=== PATIENT | female | born 1980 | race Caucasian/White ===

== ENCOUNTER 2016-11-19 09:10 | Day surgery (SDC) | payer BC ==
--- NOTE | 2016-11-18 20:55 | EKG REPORT ---
SEVERITY:- NORMAL ECG - SINUS RHYTHM : Confirmed by: Jazmyn Loja MD 18-Nov-2016 20:54:10
[~2016-11-19 09:10] MED LIST: CEFAZOLIN 1 GM/D5W RTU 1 GM/50 ML RTUPB IV PRN; DEXAMETHASONE SOD PHOSPHATE INJ 4 MG/1 ML VIAL ONE; GLYCOPYRROLATE INJ 0.4 MG/2 ML VIAL ONE; KETOROLAC TROMETHAMINE 60 MG/2 ML SDV ONE; LACTATED RINGERS 1000 ML IV PRN; LIDOCAINE 0.5% INJ-PF (5 MG/ML) 50 ML SDV SUBCUT PRN; NEOSTIGMINE METHYLSULFATE 10 MG/10 ML VIAL ONE; ONDANSETRON HCL INJ/PF 4 MG/2 ML SDV ONE; ROCURONIUM BROMIDE INJ 50 MG/5 ML VIAL IV ONE; SUCCINYLCHOLINE CHLORIDE INJ 200 MG/10 ML VIAL ONE
[2016-11-19] MEDS ORDERED: FENTANYL CITRATE INJ/PF 250 MCG/5 ML AMPULE ONE (10:15)
[2016-11-19] MEDS ORDERED: MIDAZOLAM 2 MG/2 ML INJ ONE (10:15)
[2016-11-19] MEDS ORDERED: PROPOFOL INJ 200 MG/20 ML VIAL IV ONE (10:16)
[2016-11-19] MEDS ORDERED: ACETAMINOPHEN 100 ML IV ONE ×2 (10:16→19:00)
[2016-11-19] MEDS ORDERED: BUPIVACAINE HCL 0.25% /EPINEPHRINE INJ/PF 30 ML SDV ONE (10:24)
[2016-11-19] MEDS: SCOPOLAMINE HYDROBROMIDE 1.5 MG PATCH.TD72 ONE ×2 (10:35→10:50)
[2016-11-19] MEDS: METOCLOPRAMIDE HCL INJ/PF 10 MG/2 ML SDV ONE ×2 (10:35→10:50)
[2016-11-19] MEDS: FAMOTIDINE INJ/PF 20 MG/2 ML SDV IV ONE ×2 (10:35→10:50)
[2016-11-19] MEDS ORDERED: PROMETHAZINE HCL INJ 25 MG/1 ML VIAL IV PRN ×2 (11:11)
[2016-11-19] MEDS ORDERED: DIPHENHYDRAMINE HCL 50 MG/ML VIAL IV PRN (11:11)
[2016-11-19] MEDS ORDERED: MORPHINE SULFATE 10 MG/ML INJ IV PRN ×2 (11:11→14:36)
[2016-11-19] MEDS ORDERED: MEPERIDINE HCL/PF INJ 25 MG/1 ML DISP.SYRIN IV PRN (11:11)
[2016-11-19] MEDS ORDERED: OXYCODONE-ACETAMINOPHEN 5-325 MG TABLET PO PRN ×3 (11:11→14:40)
[2016-11-19] MEDS ORDERED: FENTANYL CITRATE INJ/PF 100 MCG/2 ML AMPUL IV PRN ×3 (11:11)
[2016-11-19] MEDS ORDERED: FENTANYL CITRATE INJ/PF 100 MCG/2 ML AMPUL ONE (13:50)
--- NOTE | 2016-11-19 13:50 | OPERATIVE REPORT E ---
Operative Report NAME: JOHN ROPER : 1980 AGE: 35Y DATE OF SURGERY: ROOM: PREOPERATIVE DIAGNOSES: ABNORMAL UTERINE BLEEDING, DYSMENORRHEA. POSTOPERATIVE DIAGNOSES: ABNORMAL UTERINE BLEEDING, DYSMENORRHEA, ENDOMETRIOSIS, STAGE I. OPERATION: Laparoscopic-assisted vaginal hysterectomy with bilateral salpingo-oophorectomy. SURGEON: CARLOS HALL M.D. ANESTHESIA: General endotracheal with Dr. Maria. FINDINGS: Stage 1 endometriosis mostly along the bladder and in the posterior cul-de-sac near the rectum. The uterus had a small fibroid in the anterior fundus. Normal ovaries. Normal fallopian tubes. ESTIMATED BLOOD LOSS: 200 mL. SPECIMENS REMOVED: Cervix, uterus and fallopian tubes. PROCEDURE: The patient was taken to the operating room, prepared and draped in a normal sterile fashion in the dorsal lithotomy position. Under sterile conditions, a Hernández catheter was placed to gravity and a speculum was placed in the vagina where the cervix was grasped with a [place] clamp for uterine manipulation. Gloves were changed and attention was then turned to the upper portion of the case. An umbilical skin incision was made with the scalpel and a cut-down method was used to enter the peritoneal cavity. The abdomen was insufflated with approximately 2 L of CO2 gas. The patient was then placed in steep Trendelenburg and the camera was inserted through this incision with the above findings noted. Under direct visualization, two 5-mm ports were placed, one in each lower quadrant for assistance. The bowel was swept away. Beginning with the left fallopian tube, the left fallopian tube was tented and was elevated and the LigaSure was used to transect the fallopian tube from the specimen. Using the LigaSure again, the uterine artery was coagulated down to the level of the bladder flap. This procedure was repeated on the right adnexa without difficulty. The lower portion of the case was then begun. The abdomen was deflated and the patient was taken out of Trendelenburg and a weighted speculum was placed inside the vagina. The cervix was then regrasped with a triple tooth Ruddy on the anterior and posterior aspects. The cervix was then injected with approximately 20 mL of lidocaine with epinephrine and the cervix was then scored with a 10-blade scalpel circumferentially. The mucosa was then dissected away from the cervix using Metzenbaums and blunt dissection. The uterosacral ligaments were then cut and clamped and tied off with 0 Vicryl popoffs. The LigaSure was then used to complete the transection of the uterine arteries until the specimen was freed after entering the anterior and posterior cul-de-sacs sharply with Metzenbaums. The bowel was then held away with a sponge stick and the vaginal cuff was closed using an 0 Vicryl runner, removing the sponge stick once the cuff was mostly closed. We then inflated the abdomen once more and placed the patient in steep Trendelenburg, swept the bowel away and inspected the cuff closure laparoscopically and found it to be hemostatic. The abdomen was then deflated once more. The three incision sites were closed with 4-0 Monocryl. The patient tolerated the procedure well. Sponge, lap and needle counts were correct x2 and the patient was taken to recovery in stable condition. DICTATING PHYSICIAN: CARLOS HALL M.D. [id number] PHY#: [id number] ID: [id number] JOB#: [id number] ACCT: [id number] cc:CARLOS HALL M.D. >
[2016-11-19] MEDS ORDERED: IBUPROFEN 800 MG TABLET PO PRN (14:39)
[2016-11-19] MEDS ORDERED: RINGERS SOLUTION,LACTATED 1,000 ML IV PRN (14:40)
[2016-11-19 16:09] LABS: HEMATOCRIT 42.7 % (36.0-47.0); HEMOGLOBIN 13.4 g/dL (12.0-15.5); HGB HCT DIFFERENCE -2.5; MEAN CORPUSCULAR HEMOGLOBIN 25.7 pg (27.0-33.4); MEAN CORPUSCULAR HGB CONC 31.5 g/dL (32.0-36.0); MEAN CORPUSCULAR VOLUME 82 fl (80-97); RED BLOOD COUNT 5.22 10^6/uL (3.72-5.28); RED CELL DISTRIBUTION WIDTH 14.2 % (11.5-14.0); WHITE BLOOD COUNT 10.4 10^3/uL (4.0-10.5)
[2016-11-19 16:27] LABS: APPEARANCE,URINE CLEAR; BILIRUBIN,URINE NEGATIVE (NEGATIVE); GLUCOSE, URINE NEGATIVE (NEGATIVE); KETONES,URINE NEGATIVE (NEGATIVE); LEUKOCYTE ESTERASE,URINE NEGATIVE (NEGATIVE); NITRITE,URINE NEGATIVE (NEGATIVE); PROTEIN,URINE NEGATIVE (NEGATIVE); URINE SPECIFIC GRAVITY 1.013; UROBILINOGEN,URINE NEGATIVE mg/dL (<2.0)
[2016-11-19 18:51] VITALS: BP 104/66
[2016-11-19] MEDS ORDERED: KETOROLAC TROMETHAMINE INJ/PF 30 MG/1 ML SDV IV SCH (19:00)
[2016-11-20] MEDS ORDERED: IBUPROFEN 800 MG TABLET PO PRN (11:00)
[2016-11-20 16:34] LABS: ANION GAP 11 (5-19); BLOOD UREA NITROGEN 13 mg/dL (7-20); CALCIUM 9.7 mg/dL (8.4-10.2); CARBON DIOXIDE 25 mmol/L (22-30); CHLORIDE 104 mmol/L (98-107); CREATININE RESULT 0.61 mg/dL (0.52-1.25); GLUCOSE 81 mg/dL (75-110); POTASSIUM 4.8 mmol/L (3.6-5.0); SODIUM 140.3 mmol/L (137-145)
[2016-11-20 16:35] LABS: ALANINE AMINOTRANSFERASE 47 U/L (9-52); ALKALINE PHOSPHATASE 95 U/L (38-126); ASPARTATE AMINO TRANSFERASE 30 U/L (14-36); BILIRUBIN,DIRECT 0.3 mg/dL (0.0-0.4); BILIRUBIN,TOTAL 0.4 mg/dL (0.2-1.3); TOTAL PROTEIN 7.4 g/dL (6.3-8.2)
--- NOTE | 2017-01-04 09:54 | PDOC DISCHARGE SUMMARY ---
General - Admit/Disc Date/PCP Admission Date/Primary Care Provider: MARY GRACE VILCHIS MD Discharge Date: 11/19/16 - Discharge Diagnosis (1) Abnormal uterine bleeding Is this a current diagnosis for this admission?: Yes (2) Pelvic pain Is this a current diagnosis for this admission?: Yes (3) Endometriosis determined by laparoscopy Is this a current diagnosis for this admission?: Yes - Additional Information Discharge Diet: As Tolerated, Regular Discharge Activity: Activity As Tolerated, Balance Activity w/Rest Home Medications: Cetirizine HCl [Zyrtec] 10 mg PO DAILY 11/11/16 Multivitamin [Daily Multiple Vitamin] 1 each PO DAILY 11/11/16 Ibuprofen [Motrin 800 mg Tablet] 800 mg PO Q8HP PRN #0 tablet 11/19/16 Oxycodone HCl/Acetaminophen [Percocet 5-325 mg Tablet] 1 tab PO Q6HP PRN #0 tablet 11/19/16 History of Present Illness History of Present Illness: JOHN ROPER is a 36 year old female Hospital Course Hospital Course: patient underwent a laparoscopic assisted vaginal hysterectomy with bilateral salpingectomy. post operative course unremarkable and patient able to void without difficulty after hwang removed. Physical Exam - Physical Exam Vital Signs: Temp Pulse Resp BP Pulse Ox 97.5 F 85 16 104/66 93 11/19/16 18:49 11/19/16 18:49 11/19/16 18:49 11/19/16 18:49 11/19/16 18:49 General appearance: PRESENT: no acute distress, cooperative GI/Abdominal exam: PRESENT: soft, tenderness, other - tenderness at incision sights which are clean dry and intact with no signs of infection Result Laboratory Results: 11/18/16 09:50 11/18/16 09:50 Plan Discharge Plan: discharge home with family for care. keep follow up with Dr. Whelan at scheduled post op appointment. strict fever and bleeding precautions given Time Spent: Less than 30 Minutes
== END 2016-11-19 19:15 | disposition home or self-care (01) ==
LOC: OROUT 09:10 → 2N 15:19 → OROUT 19:15
PROVIDERS: ATTEND Obstetrics & Gynecology
PROC: 0UTC7ZZ Resection of Cervix, Via Natural or Artificial Opening (ICD-10-PCS; 2016-11-19)
PROC: 0UT7FZZ Resection of Bilateral Fallopian Tubes, Via Natural or Artificial Opening With Percutaneous Endoscopic Assistance (ICD-10-PCS; 2016-11-19)
PROC: 0UT9FZZ Resection of Uterus, Via Natural or Artificial Opening With Percutaneous Endoscopic Assistance (ICD-10-PCS; principal; 2016-11-19 11:15)
DX: N93.9 Abnormal uterine and vaginal bleeding, unspecified (principal); D25.0 Submucous leiomyoma of uterus; D25.2 Subserosal leiomyoma of uterus; E78.00 Pure hypercholesterolemia, unspecified; N94.6 Dysmenorrhea, unspecified; N80.8 Other endometriosis; N80.3 Endometriosis of pelvic peritoneum; Z87.891 Personal history of nicotine dependence
CPT/HCPCS: 93005; 86900; 86901; 36415; 86850; 85027; 81025; 80053; 81001; 88307 ×2; 93010; 58552; J2250; J3490 ×2; J0690; J1100; J1885; J3010 ×2; J2765; J0330; J2405; J2704; S0028; J0131; 944